=== PATIENT | female | born 1970 | race Caucasian/White ===

== ENCOUNTER 2016-10-27 14:08 | Emergency (ER) | payer OTHER ==
--- NOTE | 2016-10-27 15:35 | ED ORDER SUMMARY ---
..... Patient: JUDSON MURRY OrderSheet [facility] VisitID: [id number] [place] [address] 46y, F Registration Date/Time: 10/27/2016 ORDER SHEET Weight: 65.3 kg (stated) Allergies: Codeine GENERAL ORDERS: POC Glucose (14:14 10/27/2016 EKoroleva P.A.-C) (14:21 Ladarius R.N.) Wet Prep (Cervix) (c) Urgent (14:20 10/27/2016 EKoroleva P.A.-C) (Ack 14:41 RKaruga) GC/Chlamydia (Cervix) (c) Urgent (14:20 10/27/2016 EKoroleva P.A.-C) (Ack 14:41 RKaruga) CBC w Diff Urgent (14:20 10/27/2016 EKoroleva P.A.-C) (Ack 14:41 RKaruga) CMP Urgent (14:20 10/27/2016 EKoroleva P.A.-C) (Ack 14:41 RKaruga) UA-Culture if indicated Urgent (14:20 10/27/2016 EKoroleva P.A.-C) (Ack 14:41 RKaruga) (15:07 RKaruga) Pelvic Exam Setup (14:20 10/27/2016 EKoroleva P.A.-C) (14:38 RKaruga) Lipase Urgent (15:02 10/27/2016 EKoroleva P.A.-C) (Ack 15:08 RKaruga) MEDICATION ORDERS: IV FLUIDS: ORDER SHEET NOTES: [Electronically signed by Estella Holman PMeghanaAMeghana-C (15:30 10/27/2016)] [Electronically signed by Zee Cardozo R.N. (15:35 10/27/2016)] [Electronically locked/signed by Zee Cardozo R.N. (15:35 10/27/2016)]
--- NOTE | 2016-10-27 15:35 | ED MED RECONCILIATION SUMMARY ---
Patient: JUDSON MURRY Medication Reconciliation Report [facility] VisitID: [id number] [address] [place] [address] 46y, F Registration Date/Time: 10/27/2016 Weight: 65.3 kg Height/Length: 61 in. BMI: 27.2 ALLERGIES: Codeine The patient's Home Medications are listed below: THE FOLLOWING MEDICATIONS NEED TO BE RECONCILED: Iron Oral 325 mg, 2x a day MetFORMIN HCl Oral 850 mg, 2x a day The source(s) of the original Home Medication information: patient The following Medications were given to the patient in the Emergency Department: None. The following Medications were prescribed to the patient: None.
--- NOTE | 2016-10-27 15:35 | ED CLINICAL REPORT ---
Clinical Report - Physicians/Mid Levels [facility] [address] [place] [address] 10/27/2016 14:08 Patient: JUDSON MURRY Time Seen: 14:14 Oct 27 2016. Historian- patient. HISTORY OF PRESENT ILLNESS Chief Complaint: ABDOMINAL PAIN. 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 It is described as "pain" and well localized and it is described as located in the pelvic area and in the left pelvis. The patient has had nausea and diarrhea. (abd pain for 2-3 days, now with some diarrhea, saw pcp today, sent here for eval, however believes only for images, unsure. Diarrhea not new for her. NO sick contacts. No recent travel. Denies h/o diverticulitis. No emesis, has nausea. NO new meds/ no abx. Taking her dm meds regularly.). REVIEW OF SYSTEMS No constipation, black stools, difficulty with urination, pain with urination or urinary frequency. No fever, headache, blurred vision or chest pain or pain. No difficulty breathing, chills, calf pain, cough or back pain. All systems otherwise negative, except as recorded above. PAST HISTORY No history of gallstones or bowel obstruction. SOCIAL HISTORY Smoker- current status unknown. History of drug use. No alcohol use. ADDITIONAL NOTES The nursing notes have been reviewed. PHYSICAL EXAM Vital Signs: 10/27/2016 14:33 BP: 141/81. HR: 98. RR: 16. O2 saturation: 97%. Temp: 99.4 F. Pain level now: 8/10. Appearance: Alert. Eyes: Eyes normal inspection. ENT: Ears normal. Nose normal. Neck: Normal inspection. No lymphadenopathy. CVS: Normal heart rate and rhythm. Heart sounds normal. No cardiac murmur or extra heart sounds. Respiratory: No respiratory distress. Breath sounds normal. Abdomen: Soft. Mild tenderness in the left lower quadrant. No rebound tenderness or Ye's sign present. Neuro: No motor deficit. LABS, X-RAYS, AND EKG Laboratory Tests: UA-Culture if indicated: (WALESKA: 10/27/2016 14:55) ( [facility] 10/27/2016 15:23) IP Test Result Flag Units (Reference) URINE COLOR YELLOW URINE APPEARANCE CLEAR URINE GLUCOSE NEGATIVE (NEGATIVE) URINE BILIRUBIN ICTOTEST NEG (NEGATIVE) URINE KETONE NEGATIVE (NEGATIVE) URINE SPECIFIC GRAVITY >= 1.030 (1.010-1.030) URINE PH 5.0 (5.0-8.0) URINE PROTEIN NEGATIVE (NEGATIVE) URINE UROBILINOGEN 0.2 EU/dL (0.2-1.0) URINE NITRITE NEGATIVE (NEGATIVE) URINE BLOOD NEGATIVE (NEGATIVE) URINE LEUK ESTERASE NEGATIVE (NEGATIVE) CBC w Diff: (WALESKA: 10/27/2016 14:40) ( [facility] 10/27/2016 15:05) Final results Test Result Flag Units (Reference) WHITE BLOOD COUNT 8.1 K/uL (4.5-11.5) RED BLOOD COUNT 4.62 M/uL (4.00-5.20) HEMOGLOBIN 13.9 gm/dL (12.0-16.0) HEMATOCRIT 41.4 % (36.0-46.0) MEAN CELL VOLUME 90 fL (80-100) MEAN CORPUSCULAR HGB 30 pg (26-34) MEAN CORPUSCULAR HGB CONC 34 g/dL (31-37) RED CELL DISTRIBUTION WIDTH 12.8 % (11.6-14.8) PLATELET COUNT 298 K/uL (150-400) NEUTROPHIL % 58.7 % (50-75) LYMPH % 30.9 % (25-40) MONO % 8.3 % (3-14) EOSINOPHIL % 1.6 % (0-4) BASOPHIL % 0.5 % (0-2) Lipase: (WALESKA: 10/27/2016 14:40) ( [facility] 10/27/2016 15:12) Final results Test Result Flag Units (Reference) LIPASE 120 U/L (73-393) CMP: (WALESKA: 10/27/2016 14:40) ( [facility] 10/27/2016 15:11) Final results Test Result Flag Units (Reference) GLUCOSE 145 H mg/dL (70-110) BUN 13 mg/dL (7-18) CREATININE 0.8 mg/dL (0.6-1.3) Estimated GFR >60 mL/min Estimated GFR- >60 mL/min Note: Persistent reduction over 3 months in eGFR<60 mL/min/1.73 m2 defines CKD. Patients with eGFR values>=60 mL/min/1.73 m2 may also have CKD if evidence ofpersistent proteinuria. Additional information may be foundat www.kidney.org. SODIUM 141 mmol/L (136-145) POTASSIUM 3.9 mmol/L (3.5-5.1) CHLORIDE 104 mmol/L (98-107) CARBON DIOXIDE 30 mmol/L (21-32) CALCIUM 8.2 L mg/dL (8.5-10.1) TOTAL PROTEIN 7.1 g/dL (6.4-8.2) ALBUMIN 3.8 g/dL (3.3-5.0) BILIRUBIN, TOTAL 0.4 mg/dL (0.0-1.0) ALKALINE PHOSPHATASE 54 U/L (46-116) AST (SGOT) 12 L U/L (15-37) ALT (SGPT) 17 U/L (12-78) . PROGRESS AND PROCEDURES Course of Care: 14:15. Glucose: 150. PT with h/o distant PID with r. ovary excision with tube, and at this time refusing/ declining pelvic exam. Pt has left side pelvic pain. Phone her pcp, who sent her for er for work up, pt declining further evaluation, wishes to go home. Understands risks. Her labs thus far have returned neg cbc/cmp. Not complete work up or exam in er. afebrile, normacardic, with an unclear source of pain. Disposition: Discharged (ama). CLINICAL IMPRESSION Abdominal Pain. (Electronically signed by Estella Holman P.A.-C 10/27/2016 15:30)
--- NOTE | 2016-10-27 15:35 | ED DISCHARGE INSTRUCTIONS ---
Patient: JUDSON MURRY General Instructions [facility] VisitID: [id number] [address] [place] [address] 46y, F Registration Date/Time: 10/27/2016 Abdominal Pain. (Electronically signed by Estella Holman P.A.-C 10/27/2016 15:30)
--- NOTE | 2016-10-27 15:35 | ED NURSING NOTES ---
Clinical Report - Nurses [facility] [address] [place] [address] 10/27/2016 14:08 [id number] Triage time 14:15 Oct 27 2016. Acuity: LEVEL 3. Chief Complaint: ABDOMINAL PAIN and NAUSEA. Alert. MARTA COMA SCORE: Marta Coma Scale: 15- eyes open spontaneously (4); best verbal response- oriented x 4 (5); best motor response- obeys commands (6). --14:28 Amador Hurd R.N. 14:33 10/27/16. BP: 141/81. HR: 98 (regular). RR: 16. O2 saturation: 97% on room air. Temp: 99.4 F. Pain level now: 03/29. --14:34 Amador Hurd R.N. Weight: 65.3 kg stated. Height/Length: 61 inches Per Patient. BMI: 27.2. --14:23 Amador Hurd R.N. Medications MetFORMIN HCl Oral 850 mg, 2x a day. --14:22 Amador Hurd R.N. Iron Oral 325 mg, 2x a day. --14:23 Amador Hurd R.N. Allergies Codeine. Definite Moderate(nausea) --14:22 Amador Hurd R.N. Medication/allergy information source: the patient. --14:28 Amador Hurd R.N. History Arrived by private vehicle. Historian: patient. Unaccompanied. Primary physician (Blaire Betts). ( Lower Abdominal Pain for the last two days worsening in that time and associated with nausea and diarrhea yesterday.). Onset. (about 2 days ago). She has had nausea and abdominal pain. Treatment AUTO FINANCE SALES REP: None. SOCIAL HX: Heavy tobacco smoker (cigarette)- less than 1 pack per day. History of drug use: marijuana. No alcohol use. No recent travel. ABUSE ASSESSMENT: No report of abuse. FALL RISK ASSESSMENT: Fall risk assessment completed. No fall risk identified. NUTRITIONAL RISK ASSESSMENT: The nutritional risk assessment revealed no deficiencies. FUNCTIONAL ASSESSMENT: Functional assessment: no impairments noted. LEARNING NEEDS ASSESSMENT: The learning needs assessment revealed no barriers. SKIN INTEGRITY ASSESSMENT: Skin integrity risk assessment completed. No skin integrity risk identified. --14:28 Amador Hurd R.N. PROBLEMS: Cervical Strain. Diabetes Mellitus. Pelvic Pain. Diabetes Mellitus Type 2. Anemia. Panic Attack. Extreme anxiety. --14:25 Amador Hurd R.N. ADDITIONAL SURGERIES: Ablation uterus. Carpal Tunnel Surgery. Dilatation & Curettage. Ectopics x 3, tube ruptured. Oophorectomy. Right side tube, ovaries removed. Salpingectomy. --14:25 Amador Hurd R.N. Interventions ID band on patient. To treatment room. --14:28 Amador Hurd R.N. PHYSICAL ASSESSMENT Ambulatory to room. GENERAL / NEURO / PSYCH: Alert. Oriented X 4. HEENT: Mucous membranes are pink. RESPIRATORY: Respirations not labored. CVS: Cardiac rhythm: (RRR). GI / : Abdomen soft and nontender. SKIN: Skin is warm and dry. --14:28 Amador Hurd R.N. 15:25 10/27/16. GENERAL / NEURO / PSYCH: ( Pt states she was sent over from [facility], [facility] at [facility], but does not want any exams at this time. Asked pt if she wants to sign out AMA, and she said "yes".). --15:25 Zee Cardozo R.N. NURSING PROGRESS NOTES Patient gowned. Reassurance given. Patient identifiers checked. Call light placed in reach. Side rails up. Patient ready for evaluation- chart flagged and ED physician notified. --14:29 Amador Hurd R.N. 14:15. Glucose: 150. --14:35 Amador Hurd R.N. 14:40 10/27/16. Patient ID band checked for patient name, birthdate and medical record number. Blood samples drawn from the left antecubital space with syringe and 23g butterfly by [employer] ; labeled in presence of the patient and sent to lab: rainbow set. Central venous catheter accessed, site prepped with chlorhexidine. --14:44 Amador Hurd R.N. 15:20. ( Spoke to Dr. Sally Berry at [facility], she stated pt had 24 hours nausea and pelvic pain, and history of 2-3 pelvic surgeries, she had sent pt here to be evaluated. Pt misunderstood and thought she was just here for an x ray or scan only. She refused to have an exam.). --15:30 Zee Cardozo R.N. DISPOSITION / DISCHARGE Departure time: 15:26. The patient left the Emergency Department against medical advice and without completion of treatment. The patient appears to be alert and oriented x4. She stated is leaving the ED due to personal reasons. She was informed of the risks of leaving. Patient signed form prior to leaving. She left the Emergency Department ambulatory. --15:26 Zee Cardozo R.N. 15:26. Reviewed referral to family practice for followup and testing (and blood lab results). --15:32 Zee Cardozo R.N. Locked/Released at 10/27/2016 15:35 by Zee Cardozo R.N.
--- NOTE | 2016-10-27 15:35 | ED MED RECONCILIATION SUMMARY ---
Patient: JUDSON MURRY Medication Reconciliation Report [facility] VisitID: [id number] [address] [place] [address] 46y, F Registration Date/Time: 10/27/2016 Weight: 65.3 kg Height/Length: 61 in. BMI: 27.2 ALLERGIES: Codeine The patient's Home Medications are listed below: THE FOLLOWING MEDICATIONS NEED TO BE RECONCILED: Iron Oral 325 mg, 2x a day MetFORMIN HCl Oral 850 mg, 2x a day The source(s) of the original Home Medication information: patient The following Medications were given to the patient in the Emergency Department: None. The following Medications were prescribed to the patient: None.
--- NOTE | 2016-10-27 15:35 | ED CLINICAL REPORT ---
Clinical Report - Physicians/Mid Levels [facility] [address] [place] [address] 10/27/2016 14:08 Patient: JUDSON MURRY Time Seen: 14:14 Oct 27 2016. Historian- patient. HISTORY OF PRESENT ILLNESS Chief Complaint: ABDOMINAL PAIN. 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 It is described as "pain" and well localized and it is described as located in the pelvic area and in the left pelvis. The patient has had nausea and diarrhea. (abd pain for 2-3 days, now with some diarrhea, saw pcp today, sent here for eval, however believes only for images, unsure. Diarrhea not new for her. NO sick contacts. No recent travel. Denies h/o diverticulitis. No emesis, has nausea. NO new meds/ no abx. Taking her dm meds regularly.). REVIEW OF SYSTEMS No constipation, black stools, difficulty with urination, pain with urination or urinary frequency. No fever, headache, blurred vision or chest pain or pain. No difficulty breathing, chills, calf pain, cough or back pain. All systems otherwise negative, except as recorded above. PAST HISTORY No history of gallstones or bowel obstruction. SOCIAL HISTORY Smoker- current status unknown. History of drug use. No alcohol use. ADDITIONAL NOTES The nursing notes have been reviewed. PHYSICAL EXAM Vital Signs: 10/27/2016 14:33 BP: 141/81. HR: 98. RR: 16. O2 saturation: 97%. Temp: 99.4 F. Pain level now: 8/10. Appearance: Alert. Eyes: Eyes normal inspection. ENT: Ears normal. Nose normal. Neck: Normal inspection. No lymphadenopathy. CVS: Normal heart rate and rhythm. Heart sounds normal. No cardiac murmur or extra heart sounds. Respiratory: No respiratory distress. Breath sounds normal. Abdomen: Soft. Mild tenderness in the left lower quadrant. No rebound tenderness or Ye's sign present. Neuro: No motor deficit. LABS, X-RAYS, AND EKG Laboratory Tests: UA-Culture if indicated: (WALESKA: 10/27/2016 14:55) ( [facility] 10/27/2016 15:23) IP Test Result Flag Units (Reference) URINE COLOR YELLOW URINE APPEARANCE CLEAR URINE GLUCOSE NEGATIVE (NEGATIVE) URINE BILIRUBIN ICTOTEST NEG (NEGATIVE) URINE KETONE NEGATIVE (NEGATIVE) URINE SPECIFIC GRAVITY >= 1.030 (1.010-1.030) URINE PH 5.0 (5.0-8.0) URINE PROTEIN NEGATIVE (NEGATIVE) URINE UROBILINOGEN 0.2 EU/dL (0.2-1.0) URINE NITRITE NEGATIVE (NEGATIVE) URINE BLOOD NEGATIVE (NEGATIVE) URINE LEUK ESTERASE NEGATIVE (NEGATIVE) CBC w Diff: (WALESKA: 10/27/2016 14:40) ( [facility] 10/27/2016 15:05) Final results Test Result Flag Units (Reference) WHITE BLOOD COUNT 8.1 K/uL (4.5-11.5) RED BLOOD COUNT 4.62 M/uL (4.00-5.20) HEMOGLOBIN 13.9 gm/dL (12.0-16.0) HEMATOCRIT 41.4 % (36.0-46.0) MEAN CELL VOLUME 90 fL (80-100) MEAN CORPUSCULAR HGB 30 pg (26-34) MEAN CORPUSCULAR HGB CONC 34 g/dL (31-37) RED CELL DISTRIBUTION WIDTH 12.8 % (11.6-14.8) PLATELET COUNT 298 K/uL (150-400) NEUTROPHIL % 58.7 % (50-75) LYMPH % 30.9 % (25-40) MONO % 8.3 % (3-14) EOSINOPHIL % 1.6 % (0-4) BASOPHIL % 0.5 % (0-2) Lipase: (WALESKA: 10/27/2016 14:40) ( [facility] 10/27/2016 15:12) Final results Test Result Flag Units (Reference) LIPASE 120 U/L (73-393) CMP: (WALESKA: 10/27/2016 14:40) ( [facility] 10/27/2016 15:11) Final results Test Result Flag Units (Reference) GLUCOSE 145 H mg/dL (70-110) BUN 13 mg/dL (7-18) CREATININE 0.8 mg/dL (0.6-1.3) Estimated GFR >60 mL/min Estimated GFR- >60 mL/min Note: Persistent reduction over 3 months in eGFR<60 mL/min/1.73 m2 defines CKD. Patients with eGFR values>=60 mL/min/1.73 m2 may also have CKD if evidence ofpersistent proteinuria. Additional information may be foundat www.kidney.org. SODIUM 141 mmol/L (136-145) POTASSIUM 3.9 mmol/L (3.5-5.1) CHLORIDE 104 mmol/L (98-107) CARBON DIOXIDE 30 mmol/L (21-32) CALCIUM 8.2 L mg/dL (8.5-10.1) TOTAL PROTEIN 7.1 g/dL (6.4-8.2) ALBUMIN 3.8 g/dL (3.3-5.0) BILIRUBIN, TOTAL 0.4 mg/dL (0.0-1.0) ALKALINE PHOSPHATASE 54 U/L (46-116) AST (SGOT) 12 L U/L (15-37) ALT (SGPT) 17 U/L (12-78) . PROGRESS AND PROCEDURES Course of Care: 14:15. Glucose: 150. PT with h/o distant PID with r. ovary excision with tube, and at this time refusing/ declining pelvic exam. Pt has left side pelvic pain. Phone her pcp, who sent her for er for work up, pt declining further evaluation, wishes to go home. Understands risks. Her labs thus far have returned neg cbc/cmp. Not complete work up or exam in er. afebrile, normacardic, with an unclear source of pain. Disposition: Discharged (ama). CLINICAL IMPRESSION Abdominal Pain. (Electronically signed by Estella Holman P.A.-C 10/27/2016 15:30)
--- NOTE | 2016-10-27 15:35 | ED MAR SUMMARY ---
..... Medication Administration Record [facility] [address] [place], [place] [id number] Patient: JUDSON MURRY Visit ID: [id number] 46y, F Weight: 65.3 kg Height/Length: 61 in BMI: 27.2 ALLERGIES: Codeine
--- NOTE | 2016-10-27 15:35 | ED MAR SUMMARY ---
..... Medication Administration Record [facility] [address] [place], [place] [id number] Patient: JUDSON MURRY Visit ID: [id number] 46y, F Weight: 65.3 kg Height/Length: 61 in BMI: 27.2 ALLERGIES: Codeine
--- NOTE | 2016-10-27 15:35 | ED NURSING NOTES ---
Clinical Report - Nurses [facility] [address] [place] [address] 10/27/2016 14:08 [id number] Triage time 14:15 Oct 27 2016. Acuity: LEVEL 3. Chief Complaint: ABDOMINAL PAIN and NAUSEA. Alert. MARTA COMA SCORE: Marta Coma Scale: 15- eyes open spontaneously (4); best verbal response- oriented x 4 (5); best motor response- obeys commands (6). --14:28 Amador Hurd R.N. 14:33 10/27/16. BP: 141/81. HR: 98 (regular). RR: 16. O2 saturation: 97% on room air. Temp: 99.4 F. Pain level now: 03/29. --14:34 Amador Hurd R.N. Weight: 65.3 kg stated. Height/Length: 61 inches Per Patient. BMI: 27.2. --14:23 Amador Hurd R.N. Medications MetFORMIN HCl Oral 850 mg, 2x a day. --14:22 Amador Hurd R.N. Iron Oral 325 mg, 2x a day. --14:23 Amador Hurd R.N. Allergies Codeine. Definite Moderate(nausea) --14:22 Amador Hurd R.N. Medication/allergy information source: the patient. --14:28 Amador Hurd R.N. History Arrived by private vehicle. Historian: patient. Unaccompanied. Primary physician (Blaire Betts). ( Lower Abdominal Pain for the last two days worsening in that time and associated with nausea and diarrhea yesterday.). Onset. (about 2 days ago). She has had nausea and abdominal pain. Treatment PROCUREMENT AGENT: None. SOCIAL HX: Heavy tobacco smoker (cigarette)- less than 1 pack per day. History of drug use: marijuana. No alcohol use. No recent travel. ABUSE ASSESSMENT: No report of abuse. FALL RISK ASSESSMENT: Fall risk assessment completed. No fall risk identified. NUTRITIONAL RISK ASSESSMENT: The nutritional risk assessment revealed no deficiencies. FUNCTIONAL ASSESSMENT: Functional assessment: no impairments noted. LEARNING NEEDS ASSESSMENT: The learning needs assessment revealed no barriers. SKIN INTEGRITY ASSESSMENT: Skin integrity risk assessment completed. No skin integrity risk identified. --14:28 Amador Hurd R.N. PROBLEMS: Cervical Strain. Diabetes Mellitus. Pelvic Pain. Diabetes Mellitus Type 2. Anemia. Panic Attack. Extreme anxiety. --14:25 Amador Hurd R.N. ADDITIONAL SURGERIES: Ablation uterus. Carpal Tunnel Surgery. Dilatation & Curettage. Ectopics x 3, tube ruptured. Oophorectomy. Right side tube, ovaries removed. Salpingectomy. --14:25 Amador Hurd R.N. Interventions ID band on patient. To treatment room. --14:28 Amador Hurd R.N. PHYSICAL ASSESSMENT Ambulatory to room. GENERAL / NEURO / PSYCH: Alert. Oriented X 4. HEENT: Mucous membranes are pink. RESPIRATORY: Respirations not labored. CVS: Cardiac rhythm: (RRR). GI / : Abdomen soft and nontender. SKIN: Skin is warm and dry. --14:28 Amador Hurd R.N. 15:25 10/27/16. GENERAL / NEURO / PSYCH: ( Pt states she was sent over from [facility], [facility] at [facility], but does not want any exams at this time. Asked pt if she wants to sign out AMA, and she said "yes".). --15:25 Zee Cardozo R.N. NURSING PROGRESS NOTES Patient gowned. Reassurance given. Patient identifiers checked. Call light placed in reach. Side rails up. Patient ready for evaluation- chart flagged and ED physician notified. --14:29 Amador Hurd R.N. 14:15. Glucose: 150. --14:35 Amador Hurd R.N. 14:40 10/27/16. Patient ID band checked for patient name, birthdate and medical record number. Blood samples drawn from the left antecubital space with syringe and 23g butterfly by [employer] ; labeled in presence of the patient and sent to lab: rainbow set. Central venous catheter accessed, site prepped with chlorhexidine. --14:44 Amador Hurd R.N. 15:20. ( Spoke to Dr. Sally Berry at [facility], she stated pt had 24 hours nausea and pelvic pain, and history of 2-3 pelvic surgeries, she had sent pt here to be evaluated. Pt misunderstood and thought she was just here for an x ray or scan only. She refused to have an exam.). --15:30 Zee Cardozo R.N. DISPOSITION / DISCHARGE Departure time: 15:26. The patient left the Emergency Department against medical advice and without completion of treatment. The patient appears to be alert and oriented x4. She stated is leaving the ED due to personal reasons. She was informed of the risks of leaving. Patient signed form prior to leaving. She left the Emergency Department ambulatory. --15:26 Zee Cardozo R.N. 15:26. Reviewed referral to family practice for followup and testing (and blood lab results). --15:32 Zee Cardozo R.N. Locked/Released at 10/27/2016 15:35 by Zee Cardozo R.N.
--- NOTE | 2016-10-27 15:35 | ED DISCHARGE INSTRUCTIONS ---
Patient: JUDSON MURRY General Instructions [facility] VisitID: [id number] [address] [place] [address] 46y, F Registration Date/Time: 10/27/2016 Abdominal Pain. (Electronically signed by Estella Holman P.A.-C 10/27/2016 15:30)
--- NOTE | 2016-10-27 15:35 | ED ORDER SUMMARY ---
..... Patient: JUDSON MURRY OrderSheet [facility] VisitID: [id number] [place] [address] 46y, F Registration Date/Time: 10/27/2016 ORDER SHEET Weight: 65.3 kg (stated) Allergies: Codeine GENERAL ORDERS: POC Glucose (14:14 10/27/2016 EKoroleva P.A.-C) (14:21 Ladarius R.N.) Wet Prep (Cervix) (c) Urgent (14:20 10/27/2016 EKoroleva P.A.-C) (Ack 14:41 RKaruga) GC/Chlamydia (Cervix) (c) Urgent (14:20 10/27/2016 EKoroleva P.A.-C) (Ack 14:41 RKaruga) CBC w Diff Urgent (14:20 10/27/2016 EKoroleva P.A.-C) (Ack 14:41 RKaruga) CMP Urgent (14:20 10/27/2016 EKoroleva P.A.-C) (Ack 14:41 RKaruga) UA-Culture if indicated Urgent (14:20 10/27/2016 EKoroleva P.A.-C) (Ack 14:41 RKaruga) (15:07 RKaruga) Pelvic Exam Setup (14:20 10/27/2016 EKoroleva P.A.-C) (14:38 RKaruga) Lipase Urgent (15:02 10/27/2016 EKoroleva P.A.-C) (Ack 15:08 RKaruga) MEDICATION ORDERS: IV FLUIDS: ORDER SHEET NOTES: [Electronically signed by Estella Holman PMeghanaAMeghana-C (15:30 10/27/2016)] [Electronically signed by Zee Cardozo R.N. (15:35 10/27/2016)] [Electronically locked/signed by Zee Cardozo R.N. (15:35 10/27/2016)]
== END 2016-10-27 15:26 | disposition left against medical advice (07) ==
LOC: ED SRH 14:08
DX: R10.2 Pelvic and perineal pain (principal); Z88.5 Allergy status to narcotic agent
CPT/HCPCS: 90004; 90100; 92235; 95059

== ENCOUNTER 2016-12-27 10:57 | Outpatient (CLI) | payer OTHER ==
--- NOTE | 2016-12-27 13:14 | DIAGNOSTIC IMAGING REPORT ---
PROCEDURE: MG BILATERAL DIAGNOSTIC W/CAD INDICATION: Palpable area upper outer right breast. TECHNIQUE: CC and MLO digital views of each breast with true-lateral digital view of the right breast. In addition, spot compression CC and MLO views were obtained of the upper outer right breast (region of clinical concern). Finally, high-resolution right breast ultrasound was performed (18 mHz) with limited real-time images of the upper left breast. COMPARISON: Comparison is made to mammogram right breast ultrasound on 09/03/2014. FINDINGS: MAMMOGRAM: Computer-aided detection applied. Dense parenchymal pattern with a few benign dystrophic and microcalcifications. No evidence of mass or suspicious calcification. BREAST ULTRASOUND: Mildly heterogeneous normal breast parenchyma. No evidence of mass or cyst. IMPRESSION: 1. Negative mammogram and negative right breast ultrasound. 2. Findings discussed with the patient. 3. Resume routine screening schedule (December 2017). RESULT CODE: 1- Negative. A. A negative report should not delay biopsy if a dominant or clinically suspicious mass is present. 10-15% of cancers are not identified by x-ray. B. A negative report may reinforce clinical impression. C. Adenosis and dense breasts may obscure an underlying neoplasm. D. False positive reports average 6-10%. E.. A yearly screening mammogram is recommended. A reminder letter will be scheduled.
== END 2016-12-27 23:00 ==
LOC: MAM SRH 10:57
DX: N63 Unspecified lump in breast (principal)